=== PATIENT | female | born 1975 ===

== ENCOUNTER 2023-04-01 08:56 | Outpatient (CLI) | payer OTHER | END 2023-04-01 08:58 | disposition home or self-care (01) | LOC: SONOGRAMA 08:56 | PROVIDERS: ATTEND Pathology Anatomic Pathology & Clinical Pathology | DX: D34 Benign neoplasm of thyroid gland (principal); E06.3 Autoimmune thyroiditis; E04.1 Nontoxic single thyroid nodule ==